=== PATIENT | female | born 1945 | race Caucasian/White ===

== ENCOUNTER 2017-01-24 17:27 | Emergency (ER) | payer MEDICARE, OTHER ==
[2017-01-24 19:55] LABS: HEMOGLOBIN 13.7 gm/dl (12.3-15.3); RED BLOOD COUNT 4.51 M/UL (4.00-5.10); WHITE BLOOD COUNT 12.2 K/UL (4.5-11.0)
[2017-01-24 20:12] LABS: BUN/CREATININE RATIO 13 (0-10)
== END 2017-01-24 23:10 | disposition home or self-care (01) ==
LOC: ER1 17:27
PROVIDERS: Physician Assistant
DX: R10.817 Generalized abdominal tenderness (principal); R11.0 Nausea; E11.9 Type 2 diabetes mellitus without complications; I10 Essential (primary) hypertension; M54.9 Dorsalgia, unspecified; G89.29 Other chronic pain; Z79.84 Long term (current) use of oral hypoglycemic drugs; Z79.899 Other long term (current) drug therapy
CPT/HCPCS: 36415; 80053; 81001; 83605; 83690; 85025; 87086; 96374; 96375; 99284; J2405; J7050; Q9962

== ENCOUNTER → 2017-03-14 | Outpatient (CLI) | payer MEDICARE, OTHER ==
[~2017-03-14] MED LIST: ASPIRIN EC81 MG PO; CITALOPRAM HBR20 MG PO; GLUCOPHAGE 500500 MG PO; KLONOPIN TAB 00.5 MG PO; LEVOTHYROXINE100 MCG PO; LISINOPRIL30 MG PO; MORPHINE SULFAT30 M4 PO; OXYCODONE HCL15 MG PO; TENORMIN 25 MG25 MG PO; ZESTORETIC 20-1 EAC1 PO; ZOFRAN ODT 4 MG4 MG PO
== END ==
LOC: MAMO 02-24 13:20
DX: Z12.31 Encounter for screening mammogram for malignant neoplasm of breast (principal)
CPT/HCPCS: G0202

== ENCOUNTER 2017-04-01 14:50 | Observation (INO) | payer MEDICARE, OTHER ==
[~2017-04-01] VITALS: Ht 154.9 cm; Wt 65.3 kg
[2017-04-01 15:59] LABS: HEMOGLOBIN 13.8 gm/dl (12.3-15.3); RED BLOOD COUNT 4.57 M/UL (4.00-5.10); WHITE BLOOD COUNT 6.6 K/UL (4.5-11.0)
[2017-04-01] MEDS ORDERED: CITALOPRAM HBR20 MG PO (20:50)
[2017-04-01] MEDS ORDERED: KLONOPIN TAB 00.5 MG PO (20:51)
[2017-04-01] MEDS ORDERED: ZOFRAN ODT 4 MG4 MG PO (20:57)
[2017-04-01] MEDS ORDERED: GLUCOPHAGE 500500 MG PO (20:58)
[2017-04-01] MEDS ORDERED: MORPHINE SULFAT30 M4 PO (21:00)
[2017-04-01] MEDS ORDERED: TENORMIN 25 MG25 MG PO (21:01)
[2017-04-01] MEDS ORDERED: OXYCODONE HCL15 MG PO (21:01)
[2017-04-01] MEDS ORDERED: LEVOTHYROXINE100 MCG PO (21:02)
[2017-04-01] MEDS ORDERED: ZESTORETIC 20-1 EAC1 PO (21:04)
[2017-04-03 06:32] LABS: HEMOGLOBIN 13.5 gm/dl (12.3-15.3); RED BLOOD COUNT 4.48 M/UL (4.00-5.10)
[2017-04-03 06:35] LABS: WHITE BLOOD COUNT 4.8 K/UL (4.5-11.0)
[2017-04-03 06:50] LABS: BUN/CREATININE RATIO 20 (0-10)
[2017-04-03] MEDS ORDERED: LISINOPRIL30 MG PO (16:12)
[2017-04-03] MEDS ORDERED: ASPIRIN EC81 MG PO (16:16)
== END 2017-04-03 17:15 | disposition home or self-care (01) ==
LOC: ER1 14:50 → ZEROF 18:25 → MED SURG 4 20:15
PROVIDERS: Physician Assistant; ADMIT Family Medicine
DX: R07.89 Other chest pain (principal); E03.9 Hypothyroidism, unspecified; R51 Headache; E11.9 Type 2 diabetes mellitus without complications; G89.4 Chronic pain syndrome; F41.9 Anxiety disorder, unspecified; E87.1 Hypo-osmolality and hyponatremia; I10 Essential (primary) hypertension; K13.79 Other lesions of oral mucosa; G25.0 Essential tremor; Z79.82 Long term (current) use of aspirin; Z79.891 Long term (current) use of opiate analgesic; Z79.899 Other long term (current) drug therapy; Z98.51 Tubal ligation status; Z98.41 Cataract extraction status, right eye; Z98.42 Cataract extraction status, left eye; Z87.891 Personal history of nicotine dependence; Z82.49 Family history of ischemic heart disease and other diseases of the circulatory system
CPT/HCPCS: ECHO; 36415; 70450; 71010; 78452; 80048; 80053; 80061; 82550; 82553; 82962; 83874; 84132; 84439; 84443; 84484; 85025; 93005; 93017; 93306; 99285; A9502; G0378; J2785